=== PATIENT | female | born 1990 | race Caucasian/White ===

== ENCOUNTER 2018-12-15 14:02 | Inpatient (IN) | payer MEDICAID ==
[2018-12-15 18:16] LABS: ADD MAN DIFF? NO
[2018-12-15 18:19] LABS: WHITE BLOOD COUNT 8.6 10^3/ul (4.8-10.8)
[2018-12-15 18:19] LABS: BASOPHILS % 0.5 % (0.0-2.0); EOSINOPHILS % 0.3 % (0.0-7.0); HEMATOCRIT 40.7 % (37.0-47.0); HEMOGLOBIN 13.2 g/dl (12.0-16.0); LYMPHOCYTES # 1.5 10^3/ul (0.8-2.9); LYMPHOCYTES % 17.2 % (15.0-51.0); MEAN CORPUSCULAR HEMOGLOBIN 29.3 pg (29.0-33.0); MEAN CORPUSCULAR HGB CONC 32.4 g/dl (32.0-37.0); MEAN CORPUSCULAR VOLUME 90.4 fl (82.0-101.0); MEAN PLATELET VOLUME 10.7 fl (7.4-10.4); MONOCYTE # 0.6 10^3/ul (0.3-0.9); MONOCYTES % 6.6 % (0.0-11.0); NEUTROPHIL # 6.4 10^3/ul (1.6-7.5); NEUTROPHILS % 74.4 % (39.0-77.0); PLATELET COUNT 218 10^3/UL (140-415); RED CELL DISTRIBUTION WIDTH 15.2 % (11.5-14.5)
[2018-12-15] MEDS ORDERED: METHYLERGONOVINE 0.2 MG INJ IM (18:30)
[2018-12-15] MEDS ORDERED: IBUPROFEN 600 MG TAB PO (18:30)
[2018-12-15] MEDS ORDERED: MISOPROSTOL 200 MCG TAB PR (18:30)
[2018-12-15] MEDS ORDERED: LIDOCAINE 1% (MPF) 30 ML INJ INJ (18:30)
[2018-12-15] MEDS ORDERED: OXYTOCIN 30 UNITS/LR 500 ML IV (18:30)
[2018-12-15] MEDS ORDERED: CARBOPROST 250 MCG INJ IM (18:30)
[2018-12-15 18:38] LABS: INR 0.89; PARTIAL THROMBOPLASTIN TIME 26.7 Sec (23.0-35.0); PROTIME 12.1 Sec (11.9-14.9); PT RATIO 0.9
[2018-12-15] MEDS ORDERED: FENTAnyl 2MCG/ML-ROPIV 0.2% 100 ML (19:39)
[2018-12-15] MEDS ORDERED: NALOXONE (0.4 MG/ML) INJ IV (20:00)
[2018-12-15] MEDS: LACTATED RINGER'S 1,000 ML IV ×2 (20:10→20:11)
[2018-12-15 20:32] LABS: HEPATITIS B SURFACE ANTIGEN NEGATIVE (NEGATIVE)
[2018-12-15] MEDS: OXYTOCIN 30 UNITS/LR 500 ML IV (21:13)
[2018-12-16] MEDS: LACTATED RINGER'S 1,000 ML IV ×3 (04:07→10:48)
[2018-12-16] MEDS: FENTAnyl 2MCG/ML-ROPIV 0.2% 100 ML BAG EPI (04:08)
[2018-12-16] MEDS: ACETAMINOPHEN 325 MG TAB PO ×2 (06:25→10:09)
[2018-12-16] MEDS: AMPICILLIN 2 GM/NS (PMX) 100 ML IV (06:26)
[2018-12-16] MEDS ORDERED: DEXTROSE 5%-LR 1,000 ML IV (09:00)
[2018-12-16] MEDS: AMPICILLIN 1 GM/NS (PMX) 50 ML IV (10:09)
[2018-12-16] MEDS: OXYTOCIN 30 UNITS/LR 500 ML IV ×2 (11:12→11:13)
[2018-12-16] MEDS ORDERED: ACETAMINOPHEN 325 MG TAB PO (13:30)
[2018-12-16] MEDS ORDERED: ZOLPIDEM 5 MG TAB PO (13:30)
[2018-12-16] MEDS ORDERED: OXYTOCIN 30 UNITS/LR 500 ML IV (13:30)
[2018-12-16] MEDS ORDERED: SENNA/DOCUSATE NA (8.6MG/50MG) TAB PO (13:30)
[2018-12-16] MEDS ORDERED: ONDANSETRON 4 MG INJ IV (13:30)
[2018-12-16] MEDS ORDERED: METHYLERGONOVINE 0.2 MG INJ IM (13:30)
[2018-12-16] MEDS ORDERED: OXYCODONE/ASPIRIN (4.88/325) TAB PO (13:30)
[2018-12-16] MEDS ORDERED: MISOPROSTOL 200 MCG TAB PR (13:30)
[2018-12-16] MEDS: DEXTROSE 5%-LR 1,000 ML IV (13:30)
[2018-12-16] MEDS: LACTATED RINGER'S 1,000 ML IV* (13:30)
[2018-12-16] MEDS ORDERED: LANOLIN HPA 1 PKT TOP (13:30)
[2018-12-16] MEDS ORDERED: DIBUCAINE 1% 30 GM OINT TOP (13:30)
[2018-12-16] MEDS ORDERED: DIPHENHYDRAMINE 50 MG INJ IV (13:30)
[2018-12-16] MEDS ORDERED: CARBOPROST 250 MCG INJ IM (13:30)
[2018-12-16] MEDS: MINERAL OIL LIGHT 10 ML VIAL TOP (14:00)
[2018-12-16] MEDS: BENZOCAINE 20% 56 ML SPRAY TOP (14:34)
[2018-12-16] MEDS: WITCH HAZEL/GLYCERIN PAD PR (14:34)
[2018-12-16] MEDS: IBUPROFEN 600 MG TAB PO ×2 (17:42→23:57)
[2018-12-16 21:39] LABS: RAPID PLASMA REAGIN NONREACTIVE (NR)
[2018-12-17] MEDS: IBUPROFEN 600 MG TAB PO ×3 (06:33→17:36)
[2018-12-17 07:30] LABS: ADD MAN DIFF? NO
[2018-12-17 07:34] LABS: BASOPHILS % 0.3 % (0.0-2.0); EOSINOPHILS # 0.3 10^3/ul (0.0-0.5); EOSINOPHILS % 2.2 % (0.0-7.0); HEMATOCRIT 31.5 % (37.0-47.0); HEMOGLOBIN 10.2 g/dl (12.0-16.0); LYMPHOCYTES # 2.6 10^3/ul (0.8-2.9); LYMPHOCYTES % 23.6 % (15.0-51.0); MEAN CORPUSCULAR HEMOGLOBIN 28.7 pg (29.0-33.0); MEAN CORPUSCULAR HGB CONC 32.4 g/dl (32.0-37.0); MEAN CORPUSCULAR VOLUME 88.7 fl (82.0-101.0); MEAN PLATELET VOLUME 10.6 fl (7.4-10.4); MONOCYTES % 8.7 % (0.0-11.0); NEUTROPHIL # 7.2 10^3/ul (1.6-7.5); NEUTROPHILS % 64.6 % (39.0-77.0); PLATELET COUNT 167 10^3/UL (140-415); RED BLOOD COUNT 3.55 10^6/ul (4.20-5.40); RED CELL DISTRIBUTION WIDTH 15.4 % (11.5-14.5)
[2018-12-17 07:34] LABS: WHITE BLOOD COUNT 11.1 10^3/ul (4.8-10.8)
[2018-12-18] MEDS: IBUPROFEN 600 MG TAB PO ×3 (03:36→12:20)
[2018-12-18] MEDS: MEASLES,MUMPS,RUBELLA VACCINE INJ SC* (09:01)
[2018-12-18] MEDS: DIPHTH/TET/ACEL PERTUSS (ADULT) 0.5 ML VIAL IM* (09:11)
== END 2018-12-18 15:36 | disposition home or self-care (01) | DRG 807 ==
LOC: OBT 14:02 → PP1 12-16 14:18 → L-D 14:03 → OBT 16:00 → L-D 16:00
PROVIDERS: Obstetrics & Gynecology
PROC: 10E0XZZ Delivery of Products of Conception, External Approach (ICD-10-PCS; principal; 2018-12-16)
DX: O80 Encounter for full-term uncomplicated delivery (principal); Z37.0 Single live birth; Z3A.37 37 weeks gestation of pregnancy
CPT/HCPCS: 62322; 76818; 82962; 85025; 85610; 85730; 86592; 86850; 86900; 86901; 87340; 90715; 99464